=== PATIENT | male | born 1970 | race Two or more races ===

== ENCOUNTER 2020-06-07 08:29 | Emergency (ER) | payer OTHER, MEDICAID ==
[~2020-06-07] VITALS: Ht 175.3 cm; Wt 104.3 kg
[2020-06-07] MEDS ORDERED: HYDROcodone-ACET 5/325MG TAB PO ONE (09:30)
[2020-06-07] MEDS ORDERED: KETOROLAC TROMETH 60MG/2ML VIAL IM ONE (09:30)
[2020-06-07 10:20] VITALS: BP 139/92
== END 2020-06-07 10:41 | disposition home or self-care (01) ==
LOC: ER 08:29 → EDBD 08:29 → ER 10:41
DX: M51.37 Other intervertebral disc degeneration, lumbosacral region (principal); M54.16 Radiculopathy, lumbar region
CPT/HCPCS: 72100; 96372; 99283; J1885